=== PATIENT | male | born 1980 | race Caucasian/White ===

== ENCOUNTER 2017-02-26 08:15 | Emergency (ER) | payer BC, OTHER ==
[~2017-02-26] VITALS: Ht 182.9 cm; Wt 104.3 kg
[~2017-02-26 08:15] MED LIST: PERCOCET 5-3251 EACH PO
[2017-02-26] MEDS ORDERED: ZANAFLEX4 MG PO (08:30)
[2017-02-26] MEDS ORDERED: PHENDIMETRAZIN105 MG PO (08:30)
[2017-02-26] MEDS ORDERED: METHYLPREDNISOLO4 M1 PO (11:09)
[2017-02-26] MEDS ORDERED: ZITHROMAX250 MG PO (11:09)
--- NOTE | 2017-02-26 11:26 | EKG ---
[facility] [address] [place] [address] Signed Normal sinus rhythm Nonspecific intraventricular conduction delay Borderline ECG No previous ECGs available Confirmed by ZAID VARELA MD ([id number]) on 02/26/2017 11:26:08 AM Electronically Signed By: ZAID VARELA MD 02/26/17 1126 PATIENT NAME: THOMPSON KNAPP Electrocardiogram DATE OF : 84 PHYSICIAN: ZAID VARELA MD REPORT #: [id number] REPORT IS CONFIDENTIAL AND NOT TO BE RELEASED WITHOUT AUTHORIZATION
== END 2017-02-26 11:19 | disposition home or self-care (01) ==
LOC: ED 08:15
DX: R55 Syncope and collapse (principal); H83.09 Labyrinthitis, unspecified ear; F17.200 Nicotine dependence, unspecified, uncomplicated; Z98.890 Other specified postprocedural states; Z79.899 Other long term (current) drug therapy
CPT/HCPCS: 70450; 80053; 84484; 85025; 93005; 93010; 99284